=== PATIENT | male | born 1940 | race Caucasian/White ===

== ENCOUNTER 2020-10-23 10:14 | Outpatient (CLI) | payer BC ==
--- NOTE | 2020-10-23 12:04 | XRAY Report ---
PROCEDURE: Chest 2 View X-Ray INDICATIONS: COUGH TECHNIQUE: 2 view(s) of the chest. COMPARISON: None. FINDINGS: Surgical changes and devices: Patient is status post prior left shoulder arthroplasty. Lungs and pleura: No pleural effusions or pneumothorax. Subtle opacity at left lung base is seen con cerning for small left lower lobe infiltrate versus atelectasis. Right lung is clear. Mediastinum: Mildly tortuous thoracic aorta is seen. Heart size is enlarged. Bones and chest wall: No suspicious bony abnormalities. Soft tissues appear unremarkable. IMPRESSION: Finding is concerning for small left basilar infiltrate versus small atelectasis. No ple ural effusion or pneumothorax. Reviewed by: Petar Dewitt MD on 10/23/2020 12:02 PM PDT Approved by: Petar Dewitt MD on 10/23/2020 12:02 PM PDT Station ID: [id number]
== END 2020-10-23 10:15 | disposition home or self-care (01) ==
LOC: DI 10:14
PROVIDERS: ATTEND Family Medicine
DX: R05 Cough (principal); R91.8 Other nonspecific abnormal finding of lung field

== ENCOUNTER 2022-04-16 08:00 | Outpatient (CLI) | payer BC | END 2022-04-16 23:59 | disposition home or self-care (01) | LOC: LAB.N 08:00 | PROVIDERS: ATTEND Physician Assistant | DX: R19.7 Diarrhea, unspecified (principal) | CPT/HCPCS: 87045; 87046; 87177; 87427; 87493 ==